=== PATIENT | male | born 1935 | race Caucasian/White ===

== ENCOUNTER 2017-12-07 00:49 | Inpatient (IN) | payer OTHER ==
[~2017-12-07] VITALS: Ht 180.3 cm; Wt 48.4 kg
[2017-12-07] VITALS (11 sets, daily range): BP systolic 81–157; BP diastolic 50–74
[2017-12-07 02:45] LABS: Basophils # (auto) 0 uL; Eosinophils # (auto) 0 uL; Monocytes # (auto) 0.4 uL
[2017-12-07 02:46] LABS: Basophils % (auto) 0.4 % (0.0-2.0); Eosinophils % (auto) 0.1 % (0.0-7.0); Lymphocytes # (auto) 0.7 uL; Mean Corpuscular Hgb Conc. 32.5 g/dL (32.0-36.0); Mean Corpuscular Volume 104.6 fL (80.0-100.0); Monocytes % (auto) 3.3 % (0.0-12.0); Neutrophils % (auto) 90.2 % (37.0-80.0); Platelet Count (auto) 206 10^3/uL (140-450); Red Blood Cells 3.54 10^6/uL (4.5-5.90); Red Cell Distribution Width 13.9 % (11.8-14.3); White Blood Cell 11.1 10^3/uL (4.4-10.8)
[2017-12-07 02:55] LABS: Albumin 3.1 g/dL (3.4-5.0); Calcium 9.5 mg/dL (8.5-10.1); Potassium 4.2 mmol/L (3.5-5.1)
[2017-12-07 02:58] LABS: BUN/Creatinine Ratio 11.9; Bilirubin, Total 0.6 mg/dL (0.2-1.0)
[2017-12-07] MEDS ORDERED: ACETAMINOPHEN 325 MG TAB PO PRN (06:15)
[2017-12-07] MEDS ORDERED: MORPHINE SULFATE 10 MG/ML INJ 1ML SDV IV PRN (06:15)
[2017-12-07] MEDS ORDERED: TEMAZEPAM 15 MG CAP PO PRN (06:15)
[2017-12-07] MEDS ORDERED: FUROSEMIDE 20 MG/2 ML VIAL IV ONE ×2 (06:15→11:45)
[2017-12-07] MEDS ORDERED: HYDROcodone-ACET 5/325MG TAB PO PRN (06:15)
[2017-12-07] MEDS ORDERED: ONDANSETRON HCL 4 MG/2 ML VIAL IV PRN (06:15)
[2017-12-07] MEDS ORDERED: NITROGLYCERIN 0.4 MG SL TAB SL PRN (06:15)
[2017-12-07] MEDS: cefTRIAXone 1GM/10ml IVPUSH 10 ML IV SCH ×2 (06:15→09:28)
[2017-12-07] MEDS: AZITHROMYCIN 500MG/ 250ML 250 ML IV SCH ×2 (06:15→09:31)
[2017-12-07] MEDS ORDERED: DOCUSATE SOD 100 MG CAP PO PRN (06:15)
[2017-12-07] MEDS: FAMOTIDINE 20 MG TAB PO SCH ×2 (09:29→22:00)
[2017-12-07] MEDS ORDERED: CARVEDILOL 3.125 MG TAB PO SCH (10:00)
[2017-12-07] MEDS ORDERED: ASPirin 81 mg TAB PO SCH (10:00)
[2017-12-07] MEDS ORDERED: FUROSEMIDE 20 MG TAB PO SCH (10:00)
[2017-12-07] MEDS ORDERED: ENOXAPARIN SOD 40 MG/0.4 ML SYRINGE SC SCH (10:00)
[2017-12-07] MEDS ORDERED: ATORVASTATIN 20 MG TAB PO ONE (11:30)
[2017-12-07] MEDS ORDERED: MIDAZOLAM HCL 5 MG/ML-1ML VIAL ONE (13:47)
[2017-12-07] MEDS ORDERED: PROPOFOL 100 ML IV ONE (13:48)
[2017-12-07] MEDS ORDERED: IOHEXOL 350 MG/ML 100ML IJ ONE ×2 (14:07→15:36)
[2017-12-07] MEDS ORDERED: LIDOCAINE 2%HCL (LOCAL ANESTH.) INJ 20ML MDV ONE (14:07)
[2017-12-07] MEDS ORDERED: EPINEPHrine HCL 1 MG/10 ML SYRG ONE (14:28)
[2017-12-07] MEDS ORDERED: ATROPINE SULF 0.5 MG/5ML SYR ONE (14:29)
[2017-12-07] MEDS ORDERED: NOREPINEPHRINE 8 MG/250ML KIT 250 ML IV ONE ×2 (14:43→20:39)
[2017-12-07] MEDS ORDERED: SODIUM BICARBONATE 8.4 % INJ 50ML VIAL IV ONE (14:56)
[2017-12-07] MEDS ORDERED: SODIUM BICARBONATE 8.4% INJ 50ML SYRINGE IV ONE (15:16)
[2017-12-07] MEDS ORDERED: CALCIUM CHLOR(10%) 100MG/ML 10ML SYRINGE IV ONE (15:16)
[2017-12-07] MEDS ORDERED: EPINEPHrine HCL 1 MG/10 ML SYRG IV ONE (15:16)
[2017-12-07] MEDS ORDERED: MAGNESIUM SULF 50% 40 MEQ/10 ML VL IV ONE (15:27)
[2017-12-07] MEDS ORDERED: ATROPINE SULF 0.5 MG/5ML SYR IV ONE (15:27)
[2017-12-07] MEDS ORDERED: CLOPIDOGREL 300 MG TAB ONE (16:06)
[2017-12-07] MEDS ORDERED: ANGIOMAX 250 MG in SODIUM CHL 0.9% 50 ML IV ONE (16:30)
[2017-12-07] MEDS: PROPOFOL 100 ML IV SCH (17:00)
[2017-12-07] MEDS: FUROSEMIDE 40 MG/4 ML VIAL IV SCH (18:00)
[2017-12-07 20:27] LABS: INR 1.65 (0.9-1.15); Prothrombin Time 18.1 sec (9.37-12.3)
[2017-12-07] MEDS: ENOXAPARIN SOD 60 MG/0.6 ML SYRINGE SC SCH (22:00)
[2017-12-08] VITALS (36 sets, daily range): BP systolic 81–147; BP diastolic 40–105
[2017-12-08 04:56] LABS: Eosinophils # (auto) 0 uL; Hemoglobin 10.4 g/dL (13.5-17.5); Monocytes # (auto) 0.7 uL; Neutrophils # (auto) 7.2 uL; Nucleated Red Blood Cells % 0.1 %; Red Cell Distribution Width 13.8 % (11.8-14.3)
[2017-12-08 04:58] LABS: Basophils # (auto) 0 uL; Basophils % (auto) 0.4 % (0.0-2.0); Hematocrit 30.7 % (41.0-53.0); Lymphocytes # (auto) 0.8 uL; Lymphocytes % (auto) 8.7 % (10.0-50.0); Mean Corpuscular Hemoglobin 35.1 pg (28.0-32.0); Mean Corpuscular Hgb Conc. 33.9 g/dL (32.0-36.0); Mean Corpuscular Volume 103.6 fL (80.0-100.0); Monocytes % (auto) 7.7 % (0.0-12.0); Neutrophils % (auto) 83.2 % (37.0-80.0); Platelet Count (auto) 167 10^3/uL (140-450); Red Blood Cells 2.97 10^6/uL (4.5-5.90); White Blood Cell 8.6 10^3/uL (4.4-10.8)
[2017-12-08 05:07] LABS: INR 1.09 (0.9-1.15); Partial Thromboplastin Time 49.5 sec (22.64-33.71); Prothrombin Time 11.9 sec (9.37-12.3)
[2017-12-08 05:15] LABS: Albumin 2.3 g/dL (3.4-5.0); BUN/Creatinine Ratio 12.8; Bilirubin, Total 0.3 mg/dL (0.2-1.0); Calcium 8.4 mg/dL (8.5-10.1); Magnesium 2.4 mg/dL (1.6-2.6); Phosphorus 4.3 mg/dL (2.5-4.90); Potassium 3.5 mmol/L (3.5-5.1); Total Protein 6.5 g/dL (6.4-8.2)
[2017-12-08] MEDS: FUROSEMIDE 40 MG/4 ML VIAL IV SCH ×2 (06:09→17:47)
[2017-12-08] MEDS: NOREPINEPHRINE 8 MG/250ML KIT 250 ML IV SCH (07:00)
[2017-12-08] MEDS: cefTRIAXone 1GM/10ml IVPUSH 10 ML IV SCH (09:32)
[2017-12-08] MEDS: ENOXAPARIN SOD 60 MG/0.6 ML SYRINGE SC SCH ×2 (10:25→22:00)
[2017-12-08] MEDS: ASPirin 81 mg TAB PO SCH (10:26)
[2017-12-08] MEDS: PROPOFOL 100 ML IV SCH ×2 (10:26→18:51)
[2017-12-08] MEDS: CLOPIDOGREL BISULFATE 75 MG TAB PO SCH (10:26)
[2017-12-08] MEDS: FAMOTIDINE 20 MG TAB PO SCH ×2 (10:26→22:00)
[2017-12-08] MEDS ORDERED: CLINDAMYCIN 300MG IV 50 ML IV SCH (12:00)
[2017-12-08] MEDS: DOXYCYCLINE HYC 100MG/250ML 250 ML IV SCH (14:07)
[2017-12-08] MEDS: POTASSIUM CHL 20MEQ/100ML 100 ML IV SCH ×2 (15:50→17:38)
[2017-12-08] MEDS: CLINDAMYCIN 300MG IV 50 ML IV SCH (17:17)
[2017-12-09] VITALS (35 sets, daily range): BP systolic 99–153; BP diastolic 45–100
[2017-12-09] MEDS: CLINDAMYCIN 300MG IV 50 ML IV SCH ×3 (01:00→18:28)
[2017-12-09] MEDS: DOXYCYCLINE HYC 100MG/250ML 250 ML IV SCH ×2 (01:00→13:58)
[2017-12-09 05:05] LABS: Basophils # (auto) 0 uL; Eosinophils # (auto) 0 uL; Eosinophils % (auto) 0.1 % (0.0-7.0); Lymphocytes # (auto) 1.1 uL; Nucleated Red Blood Cells % 0.1 %; Red Cell Distribution Width 13.8 % (11.8-14.3)
[2017-12-09 05:07] LABS: Basophils % (auto) 0.3 % (0.0-2.0); Hematocrit 29.4 % (41.0-53.0); Lymphocytes % (auto) 12.9 % (10.0-50.0); Mean Corpuscular Hemoglobin 34.9 pg (28.0-32.0); Mean Corpuscular Volume 102.7 fL (80.0-100.0); Monocytes # (auto) 0.6 uL; Monocytes % (auto) 7.5 % (0.0-12.0); Neutrophils # (auto) 6.5 uL; Neutrophils % (auto) 79.2 % (37.0-80.0); Platelet Count (auto) 154 10^3/uL (140-450); Red Blood Cells 2.87 10^6/uL (4.5-5.90); White Blood Cell 8.2 10^3/uL (4.4-10.8)
[2017-12-09 05:15] LABS: BUN/Creatinine Ratio 15.1; Calcium 7.9 mg/dL (8.5-10.1); Magnesium 2.1 mg/dL (1.6-2.6); Potassium 3.1 mmol/L (3.5-5.1)
[2017-12-09 05:15] LABS: INR 0.94 (0.9-1.15); Partial Thromboplastin Time 37.7 sec (22.64-33.71); Prothrombin Time 10.2 sec (9.37-12.3)
[2017-12-09] MEDS: FUROSEMIDE 40 MG/4 ML VIAL IV SCH ×2 (06:00→18:21)
[2017-12-09] MEDS: NOREPINEPHRINE 8 MG/250ML KIT 250 ML IV SCH (06:39)
[2017-12-09] MEDS: PROPOFOL 100 ML IV SCH ×2 (08:59→12:43)
[2017-12-09] MEDS: CLOPIDOGREL BISULFATE 75 MG TAB PO SCH (10:08)
[2017-12-09] MEDS: POTASSIUM CHL 20MEQ/100ML 100 ML IV SCH ×3 (10:08→13:51)
[2017-12-09] MEDS: ASPirin 81 mg TAB PO SCH (10:08)
[2017-12-09] MEDS: FAMOTIDINE 20 MG TAB PO SCH ×2 (10:08→22:18)
[2017-12-10] VITALS (85 sets, daily range): BP systolic 75–149; BP diastolic 36–88
[2017-12-10] MEDS: CARVEDILOL 3.125 MG TAB PO SCH (00:30)
[2017-12-10] MEDS: CLINDAMYCIN 300MG IV 50 ML IV SCH ×3 (00:52→17:11)
[2017-12-10] MEDS: PROPOFOL 100 ML IV SCH ×4 (01:12→20:04)
[2017-12-10] MEDS: DOXYCYCLINE HYC 100MG/250ML 250 ML IV SCH ×2 (01:37→15:16)
[2017-12-10 04:24] LABS: Basophils # (auto) 0 uL; Basophils % (auto) 0.3 % (0.0-2.0); Eosinophils # (auto) 0 uL; Eosinophils % (auto) 0.3 % (0.0-7.0); Hemoglobin 10.3 g/dL (13.5-17.5); White Blood Cell 6.5 10^3/uL (4.4-10.8)
[2017-12-10 04:25] LABS: Hematocrit 30.7 % (41.0-53.0); Lymphocytes # (auto) 0.7 uL; Lymphocytes % (auto) 10.9 % (10.0-50.0); Mean Corpuscular Hemoglobin 34.5 pg (28.0-32.0); Mean Corpuscular Hgb Conc. 33.5 g/dL (32.0-36.0); Monocytes # (auto) 0.4 uL; Monocytes % (auto) 6.8 % (0.0-12.0); Neutrophils # (auto) 5.3 uL; Neutrophils % (auto) 81.7 % (37.0-80.0); Platelet Count (auto) 150 10^3/uL (140-450); Red Blood Cells 2.98 10^6/uL (4.5-5.90); Red Cell Distribution Width 13.6 % (11.8-14.3)
[2017-12-10 04:47] LABS: BUN/Creatinine Ratio 13.4; Calcium 7.8 mg/dL (8.5-10.1); Magnesium 2.1 mg/dL (1.6-2.6); Phosphorus 3.3 mg/dL (2.5-4.90); Potassium 3.2 mmol/L (3.5-5.1)
[2017-12-10] MEDS: FUROSEMIDE 40 MG/4 ML VIAL IV SCH ×2 (05:00→17:48)
[2017-12-10] MEDS: NOREPINEPHRINE 8 MG/250ML KIT 250 ML IV SCH (08:50)
[2017-12-10] MEDS ORDERED: POTASSIUM CHL 20MEQ/100ML 300 ML IV ONE (10:26)
[2017-12-10] MEDS: FAMOTIDINE 20 MG TAB PO SCH ×2 (10:45→21:26)
[2017-12-10] MEDS: POTASSIUM CHL 20MEQ/100ML 100 ML IV SCH ×3 (10:46→15:15)
[2017-12-10] MEDS: CLOPIDOGREL BISULFATE 75 MG TAB PO SCH (16:18)
[2017-12-10] MEDS: ASPirin 81 mg TAB PO SCH (16:18)
[2017-12-10] MEDS: ATORVASTATIN 20 MG TAB PO SCH (21:26)
[2017-12-11] VITALS (103 sets, daily range): BP systolic 66–132; BP diastolic 46–88
[2017-12-11] MEDS: CLINDAMYCIN 300MG IV 50 ML IV SCH ×3 (01:16→17:00)
[2017-12-11] MEDS: DOXYCYCLINE HYC 100MG/250ML 250 ML IV SCH ×2 (01:16→16:22)
[2017-12-11] MEDS ORDERED: NITROGLYCERIN 0.4 MG SL TAB SL ONE (03:40)
[2017-12-11] MEDS: PROPOFOL 100 ML IV SCH ×4 (04:13→20:12)
[2017-12-11 04:16] LABS: Basophils # (auto) 0 uL; Eosinophils # (auto) 0 uL; Lymphocytes # (auto) 0.8 uL; Mean Corpuscular Hgb Conc. 33.5 g/dL (32.0-36.0); Monocytes # (auto) 0.4 uL; Neutrophils # (auto) 4.2 uL; White Blood Cell 5.5 10^3/uL (4.4-10.8)
[2017-12-11 04:18] LABS: Basophils % (auto) 0.8 % (0.0-2.0); Eosinophils % (auto) 0.8 % (0.0-7.0); Hemoglobin 9.4 g/dL (13.5-17.5); Lymphocytes % (auto) 14.8 % (10.0-50.0); Mean Corpuscular Hemoglobin 34.7 pg (28.0-32.0); Mean Corpuscular Volume 103.6 fL (80.0-100.0); Monocytes % (auto) 7.5 % (0.0-12.0); Neutrophils % (auto) 76.1 % (37.0-80.0); Platelet Count (auto) 152 10^3/uL (140-450); Red Cell Distribution Width 13.5 % (11.8-14.3)
[2017-12-11 04:45] LABS: BUN/Creatinine Ratio 12.2; Calcium 7.9 mg/dL (8.5-10.1); Magnesium 1.8 mg/dL (1.6-2.6); Phosphorus 2.8 mg/dL (2.5-4.90); Potassium 3.2 mmol/L (3.5-5.1)
[2017-12-11] MEDS: NOREPINEPHRINE 8 MG/250ML KIT 250 ML IV SCH (06:22)
[2017-12-11] MEDS: FUROSEMIDE 40 MG/4 ML VIAL IV SCH ×2 (06:29→18:35)
[2017-12-11] MEDS: POTASSIUM CHL 20MEQ/100ML 100 ML IV SCH ×2 (07:51→10:04)
[2017-12-11] MEDS: LISINOPRIL 5 MG TAB PO SCH (09:23)
[2017-12-11] MEDS: FAMOTIDINE 20 MG TAB PO SCH ×2 (09:23→22:00)
[2017-12-11] MEDS: CARVEDILOL 3.125 MG TAB PO SCH ×2 (09:24→21:44)
[2017-12-11] MEDS: ASPirin 81 mg TAB PO SCH (10:00)
[2017-12-11] MEDS: CLOPIDOGREL BISULFATE 75 MG TAB PO SCH (10:00)
[2017-12-11] MEDS: ATORVASTATIN 20 MG TAB PO SCH (21:43)
[2017-12-12] VITALS (89 sets, daily range): BP systolic 76–157; BP diastolic 51–85
[2017-12-12] MEDS: DOXYCYCLINE HYC 100MG/250ML 250 ML IV SCH ×2 (01:26→13:38)
[2017-12-12] MEDS: CLINDAMYCIN 300MG IV 50 ML IV SCH ×3 (01:26→17:29)
[2017-12-12 03:47] LABS: Basophils # (auto) 0 uL; Eosinophils # (auto) 0.1 uL; Hemoglobin 10.6 g/dL (13.5-17.5); Lymphocytes # (auto) 0.9 uL; Monocytes # (auto) 0.4 uL
[2017-12-12 03:49] LABS: Basophils % (auto) 0.2 % (0.0-2.0); Eosinophils % (auto) 1.9 % (0.0-7.0); Lymphocytes % (auto) 14.8 % (10.0-50.0); Mean Corpuscular Hemoglobin 34.3 pg (28.0-32.0); Mean Corpuscular Hgb Conc. 33.3 g/dL (32.0-36.0); Mean Corpuscular Volume 103.1 fL (80.0-100.0); Monocytes % (auto) 6.4 % (0.0-12.0); Neutrophils # (auto) 4.7 uL; Neutrophils % (auto) 76.7 % (37.0-80.0); Nucleated Red Blood Cells % 0.2 %; Platelet Count (auto) 159 10^3/uL (140-450); Red Cell Distribution Width 13.6 % (11.8-14.3); White Blood Cell 6.2 10^3/uL (4.4-10.8)
[2017-12-12] MEDS: PROPOFOL 100 ML IV SCH ×3 (04:00→11:30)
[2017-12-12 04:01] LABS: Calcium 8.8 mg/dL (8.5-10.1); Potassium 3.6 mmol/L (3.5-5.1)
[2017-12-12 04:06] LABS: BUN/Creatinine Ratio 13.3
[2017-12-12] MEDS: FUROSEMIDE 40 MG/4 ML VIAL IV SCH ×2 (06:03→18:00)
[2017-12-12] MEDS: NOREPINEPHRINE 8 MG/250ML KIT 250 ML IV SCH (09:00)
[2017-12-12] MEDS: CARVEDILOL 3.125 MG TAB PO SCH ×2 (10:00→21:53)
[2017-12-12] MEDS: LISINOPRIL 5 MG TAB PO SCH (10:00)
[2017-12-12] MEDS: CLOPIDOGREL BISULFATE 75 MG TAB PO SCH (10:35)
[2017-12-12] MEDS: ASPirin 81 mg TAB PO SCH (10:35)
[2017-12-12] MEDS: FAMOTIDINE 20 MG TAB PO SCH ×2 (10:35→21:53)
[2017-12-12] MEDS: ATORVASTATIN 20 MG TAB PO SCH (21:53)
[2017-12-13] VITALS (30 sets, daily range): BP systolic 80–120; BP diastolic 44–99
[2017-12-13] MEDS: PROPOFOL 100 ML IV SCH ×2 (01:01→02:55)
[2017-12-13] MEDS: DOXYCYCLINE HYC 100MG/250ML 250 ML IV SCH ×2 (01:09→15:03)
[2017-12-13] MEDS: CLINDAMYCIN 300MG IV 50 ML IV SCH ×3 (01:09→18:15)
[2017-12-13 04:24] LABS: BUN/Creatinine Ratio 17.6; Calcium 8.8 mg/dL (8.5-10.1); Potassium 3.4 mmol/L (3.5-5.1)
[2017-12-13] MEDS: FUROSEMIDE 40 MG/4 ML VIAL IV SCH ×2 (05:15→18:15)
[2017-12-13] MEDS: NOREPINEPHRINE 8 MG/250ML KIT 250 ML IV SCH (06:22)
[2017-12-13] MEDS: LISINOPRIL 5 MG TAB PO SCH (09:49)
[2017-12-13] MEDS: CARVEDILOL 3.125 MG TAB PO SCH ×2 (09:49→22:00)
[2017-12-13] MEDS: FAMOTIDINE 20 MG TAB PO SCH ×2 (10:00→22:00)
[2017-12-13] MEDS: CLOPIDOGREL BISULFATE 75 MG TAB PO SCH (10:30)
[2017-12-13] MEDS: ASPirin 81 mg TAB PO SCH (10:30)
[2017-12-13] MEDS ORDERED: POTASSIUM CHL 20MEQ/100ML 100 ML IV ONE (15:30)
[2017-12-13] MEDS: POTASSIUM CHL 20MEQ/100ML 100 ML IV SCH (18:00)
[2017-12-13] MEDS: ATORVASTATIN 20 MG TAB PO SCH (22:00)
[2017-12-13] MEDS: ALBUTEROL SULF 2.5 MG/0.5ML(0.5%) NEB SOLN NEB PRN (22:35)
[2017-12-13] MEDS: ACETYLCYSTEINE 10 %(100MG/ML) SOL 4ML NEB SCH (22:35)
[2017-12-14] VITALS (16 sets, daily range): BP systolic 91–125; BP diastolic 49–86
[2017-12-14] MEDS: DOXYCYCLINE HYC 100MG/250ML 250 ML IV SCH ×2 (01:00→12:51)
[2017-12-14] MEDS: CLINDAMYCIN 300MG IV 50 ML IV SCH ×2 (01:00→11:59)
[2017-12-14 04:08] LABS: Eosinophils # (auto) 0.1 uL; Hemoglobin 11.5 g/dL (13.5-17.5); Monocytes # (auto) 0.8 uL; Neutrophils # (auto) 7.1 uL
[2017-12-14 04:13] LABS: Basophils # (auto) 0 uL; Basophils % (auto) 0.5 % (0.0-2.0); Eosinophils % (auto) 1.5 % (0.0-7.0); Hematocrit 34.1 % (41.0-53.0); Lymphocytes % (auto) 10.8 % (10.0-50.0); Mean Corpuscular Hemoglobin 34.2 pg (28.0-32.0); Mean Corpuscular Hgb Conc. 33.6 g/dL (32.0-36.0); Mean Corpuscular Volume 101.6 fL (80.0-100.0); Monocytes % (auto) 8.3 % (0.0-12.0); Neutrophils % (auto) 78.9 % (37.0-80.0); Nucleated Red Blood Cells % 0.1 %; Platelet Count (auto) 274 10^3/uL (140-450); Red Blood Cells 3.35 10^6/uL (4.5-5.90); Red Cell Distribution Width 13.1 % (11.8-14.3)
[2017-12-14 04:34] LABS: BUN/Creatinine Ratio 16.3; Calcium 8.5 mg/dL (8.5-10.1); Potassium 3.6 mmol/L (3.5-5.1)
[2017-12-14] MEDS: POTASSIUM CHL 20MEQ/100ML 100 ML IV SCH (06:18)
[2017-12-14] MEDS: FUROSEMIDE 40 MG/4 ML VIAL IV SCH (06:19)
[2017-12-14] MEDS: NOREPINEPHRINE 8 MG/250ML KIT 250 ML IV SCH (06:19)
[2017-12-14] MEDS: ALBUTEROL SULF 2.5 MG/0.5ML(0.5%) NEB SOLN NEB PRN ×3 (06:25→22:12)
[2017-12-14] MEDS: ASPirin 81 mg TAB PO SCH (10:00)
[2017-12-14] MEDS: LISINOPRIL 5 MG TAB PO SCH (10:00)
[2017-12-14] MEDS: FAMOTIDINE 20 MG TAB PO SCH ×2 (10:00→21:27)
[2017-12-14] MEDS: CLOPIDOGREL BISULFATE 75 MG TAB PO SCH (10:00)
[2017-12-14] MEDS: CARVEDILOL 3.125 MG TAB PO SCH ×2 (10:00→22:28)
[2017-12-14] MEDS: ACETYLCYSTEINE 10 %(100MG/ML) SOL 4ML NEB SCH ×2 (10:34→22:12)
[2017-12-14] MEDS ORDERED: HYDROcodone-ACET 5/325MG TAB PO PRN (14:30)
[2017-12-14] MEDS ORDERED: TEMAZEPAM 15 MG CAP PO PRN (14:30)
[2017-12-14] MEDS ORDERED: MORPHINE SULF INJ 2 MG/ML SYRINGE 1ML IV PRN (14:45)
[2017-12-14] MEDS: PROPOFOL 100 ML IV SCH (16:29)
[2017-12-14] MEDS: ATORVASTATIN 20 MG TAB PO SCH (21:27)
[2017-12-15 04:00] VITALS: BP 124/50
[2017-12-15] MEDS: NOREPINEPHRINE 8 MG/250ML KIT 250 ML IV SCH (06:22)
[2017-12-15 08:00] VITALS: BP 106/66
[2017-12-15] MEDS: ACETYLCYSTEINE 10 %(100MG/ML) SOL 4ML NEB SCH (09:19)
[2017-12-15] MEDS: CARVEDILOL 3.125 MG TAB PO SCH ×2 (10:00→22:00)
[2017-12-15] MEDS: LISINOPRIL 5 MG TAB PO SCH (10:00)
[2017-12-15] MEDS ORDERED: FUROSEMIDE 40 MG/4 ML VIAL IV SCH (10:00)
[2017-12-15] MEDS ORDERED: POTASSIUM CHL 20MEQ/100ML 100 ML IV SCH (10:00)
[2017-12-15] MEDS ORDERED: FUROSEMIDE 20 MG/2 ML VIAL IV SCH (10:15)
[2017-12-15] MEDS: ASPirin 81 mg TAB PO SCH (10:17)
[2017-12-15] MEDS: FAMOTIDINE 20 MG TAB PO SCH ×2 (10:17→22:00)
[2017-12-15] MEDS: CLOPIDOGREL BISULFATE 75 MG TAB PO SCH (10:18)
[2017-12-15 10:19] LABS: BUN/Creatinine Ratio 21.1; Calcium 9.1 mg/dL (8.5-10.1); Potassium 3.6 mmol/L (3.5-5.1)
[2017-12-15 12:14] VITALS: BP 115/67
[2017-12-15 16:11] VITALS: BP 150/81
[2017-12-15 20:25] VITALS: BP 105/66
[2017-12-15] MEDS: ATORVASTATIN 20 MG TAB PO SCH (22:00)
[2017-12-16] VITALS (7 sets, daily range): BP systolic 79–127; BP diastolic 55–81
[2017-12-16] MEDS: CLOPIDOGREL BISULFATE 75 MG TAB PO SCH (10:42)
[2017-12-16] MEDS: FUROSEMIDE 20 MG TAB PO SCH (10:42)
[2017-12-16] MEDS: POTASSIUM CHL 20 Meq TABLET PO SCH (10:42)
[2017-12-16] MEDS: CARVEDILOL 3.125 MG TAB PO SCH ×2 (10:43→21:46)
[2017-12-16] MEDS: ASPirin 81 mg TAB PO SCH (10:43)
[2017-12-16] MEDS: FAMOTIDINE 20 MG TAB PO SCH ×2 (10:43→22:03)
[2017-12-16] MEDS: LISINOPRIL 5 MG TAB PO SCH (10:44)
[2017-12-16] MEDS: ATORVASTATIN 20 MG TAB PO SCH (22:03)
[2017-12-17] VITALS (86 sets, daily range): BP systolic 81–133; BP diastolic 39–75
[2017-12-17] MEDS ORDERED: NOREPINEPHRINE 8 MG/250ML KIT 250 ML IV SCH (00:15)
[2017-12-17 05:36] LABS: Basophils # (auto) 0 uL; Eosinophils # (auto) 0.2 uL; Hemoglobin 11.2 g/dL (13.5-17.5); Lymphocytes # (auto) 1.4 uL; Monocytes % (auto) 7.5 % (0.0-12.0)
[2017-12-17 05:42] LABS: Basophils % (auto) 0.4 % (0.0-2.0); Eosinophils % (auto) 1.9 % (0.0-7.0); Hematocrit 33.4 % (41.0-53.0); Lymphocytes % (auto) 16.4 % (10.0-50.0); Mean Corpuscular Hemoglobin 34.2 pg (28.0-32.0); Mean Corpuscular Hgb Conc. 33.6 g/dL (32.0-36.0); Mean Corpuscular Volume 101.8 fL (80.0-100.0); Monocytes # (auto) 0.7 uL; Neutrophils # (auto) 6.4 uL; Neutrophils % (auto) 73.8 % (37.0-80.0); Platelet Count (auto) 358 10^3/uL (140-450); Red Blood Cells 3.28 10^6/uL (4.5-5.90); Red Cell Distribution Width 13.4 % (11.8-14.3); White Blood Cell 8.7 10^3/uL (4.4-10.8)
[2017-12-17 06:14] LABS: Albumin 2.5 g/dL (3.4-5.0); BUN/Creatinine Ratio 18.4; Bilirubin, Total 0.6 mg/dL (0.2-1.0); Calcium 8.7 mg/dL (8.5-10.1); Potassium 3.9 mmol/L (3.5-5.1); Total Protein 7.4 g/dL (6.4-8.2)
[2017-12-17] MEDS: FUROSEMIDE 20 MG TAB PO SCH (09:50)
[2017-12-17] MEDS: CARVEDILOL 3.125 MG TAB PO SCH ×2 (09:50→21:57)
[2017-12-17] MEDS: LISINOPRIL 5 MG TAB PO SCH (09:51)
[2017-12-17] MEDS: FAMOTIDINE 20 MG TAB PO SCH ×2 (10:01→21:58)
[2017-12-17] MEDS: CLOPIDOGREL BISULFATE 75 MG TAB PO SCH (10:01)
[2017-12-17] MEDS: ASPirin 81 mg TAB PO SCH (10:01)
[2017-12-17] MEDS: POTASSIUM CHL 20 Meq TABLET PO SCH (10:01)
[2017-12-17] MEDS ORDERED: HYDROCORTISONE SOD SUCC 100 MG/2ML INJ VIAL IV ONE (14:45)
[2017-12-17] MEDS: ATORVASTATIN 20 MG TAB PO SCH (21:58)
[2017-12-18] VITALS (17 sets, daily range): BP systolic 95–130; BP diastolic 47–68
[2017-12-18] MEDS: CARVEDILOL 3.125 MG TAB PO SCH (10:00)
[2017-12-18] MEDS: ASPirin 81 mg TAB PO SCH (10:00)
[2017-12-18] MEDS: CLOPIDOGREL BISULFATE 75 MG TAB PO SCH (10:00)
[2017-12-18] MEDS: FAMOTIDINE 20 MG TAB PO SCH (10:00)
[2017-12-18] MEDS ORDERED: ASPI81CH43 PO (14:56)
[2017-12-18] MEDS ORDERED: CLOP75TA28 PO (14:56)
[2017-12-18] MEDS ORDERED: ATOR20TA50 PO (14:56)
[2017-12-18] MEDS ORDERED: FURO20TA PO (14:56)
[2017-12-18] MEDS ORDERED: CAR3125T PO (14:56)
== END 2017-12-18 20:55 | disposition home health service (06) | DRG 270 ==
LOC: ER 00:49 → EDBD 00:49 → TELE 00:50 → TELE-CENTR 08:08 → ICU WEST 16:09 → DOU IN ICU 12-14 22:57
PROVIDERS: ADMIT Nurse Practitioner; ATTEND Internal Medicine
PROC: B2111ZZ Fluoroscopy of Multiple Coronary Arteries using Low Osmolar Contrast (ICD-10-PCS; principal; 2017-12-07)
PROC: 5A02110 Assistance with Cardiac Output using Balloon Pump, Intermittent (ICD-10-PCS; 2017-12-07)
PROC: 027035Z Dilation of Coronary Artery, One Artery with Two Drug-eluting Intraluminal Devices, Percutaneous Approach (ICD-10-PCS; 2017-12-07)
PROC: 4A023N7 Measurement of Cardiac Sampling and Pressure, Left Heart, Percutaneous Approach (ICD-10-PCS; 2017-12-07)
PROC: B2151ZZ Fluoroscopy of Left Heart using Low Osmolar Contrast (ICD-10-PCS; 2017-12-07)
PROC: 5A12012 Performance of Cardiac Output, Single, Manual (ICD-10-PCS; 2017-12-07)
PROC: 5A1955Z Respiratory Ventilation, Greater than 96 Consecutive Hours (ICD-10-PCS; 2017-12-07)
PROC: 0BH17EZ Insertion of Endotracheal Airway into Trachea, Via Natural or Artificial Opening (ICD-10-PCS; 2017-12-07)
PROC: 0W993ZZ Drainage of Right Pleural Cavity, Percutaneous Approach (ICD-10-PCS; 2017-12-11)
DX: I21.09 ST elevation (STEMI) myocardial infarction involving other coronary artery of anterior wall (principal); J96.01 Acute respiratory failure with hypoxia; I46.9 Cardiac arrest, cause unspecified; G92 Toxic encephalopathy; J18.9 Pneumonia, unspecified organism; J90 Pleural effusion, not elsewhere classified; G93.1 Anoxic brain damage, not elsewhere classified; E46 Unspecified protein-calorie malnutrition; I11.0 Hypertensive heart disease with heart failure; I50.43 Acute on chronic combined systolic (congestive) and diastolic (congestive) heart failure; Z68.1 Body mass index [BMI] 19.9 or less, adult; I42.0 Dilated cardiomyopathy; D64.9 Anemia, unspecified; E87.6 Hypokalemia; I25.10 Atherosclerotic heart disease of native coronary artery without angina pectoris; I25.5 Ischemic cardiomyopathy; I25.82 Chronic total occlusion of coronary artery; I49.5 Sick sinus syndrome; I73.9 Peripheral vascular disease, unspecified; Z79.02 Long term (current) use of antithrombotics/antiplatelets; Z79.82 Long term (current) use of aspirin; Z87.891 Personal history of nicotine dependence; Z95.5 Presence of coronary angioplasty implant and graft; Z79.899 Other long term (current) drug therapy
CPT/HCPCS: 32555; 33967; 36415; 36600; 70450; 71045; 76604; 76942; 80048; 80053; 82805; 82962; 83735; 83880; 83986; 84100; 84484; 85025; 85379; 85610; 85730; 87081; 87205; 89051; 92610; 92928; 92950; 93005; 93306; 93458; 94002; 94003; 94640; 96374; 97110; 97116; 97163; 97530; 99152; A4565; C1751; C1874; C1887; J0461; J2250; J2704; J3480; J3490

== ENCOUNTER 2018-01-19 09:26 | Inpatient (IN) | payer OTHER ==
[2018-01-19] VITALS (8 sets, daily range): BP systolic 100–124; BP diastolic 57–79
[~2018-01-19] VITALS: Ht 185.4 cm; Wt 2.0 kg
[~2018-01-19 09:26] MED LIST: ASPI81CH43 PO; ATOR20TA50 PO; CAR3125T PO; CLOP75TA28 PO; FURO20TA PO
[2018-01-19 10:27] LABS: Eosinophils # (auto) 0 uL; Lymphocytes # (auto) 0.9 uL; Monocytes # (auto) 0.3 uL; Neutrophils # (auto) 6.8 uL
[2018-01-19 10:29] LABS: Basophils # (auto) 0.1 uL; Basophils % (auto) 0.7 % (0.0-2.0); Eosinophils % (auto) 0.3 % (0.0-7.0); Hematocrit 20.3 % (41.0-53.0); Mean Corpuscular Hemoglobin 32.4 pg (28.0-32.0); Mean Corpuscular Hgb Conc. 32.6 g/dL (32.0-36.0); Mean Corpuscular Volume 99.4 fL (80.0-100.0); Monocytes % (auto) 3.7 % (0.0-12.0); Neutrophils % (auto) 84.3 % (37.0-80.0); Platelet Count (auto) 201 10^3/uL (140-450); Red Blood Cells 2.04 10^6/uL (4.5-5.90); Red Cell Distribution Width 14.4 % (11.8-14.3); White Blood Cell 8.1 10^3/uL (4.4-10.8)
[2018-01-19 10:33] LABS: Hemoglobin 6.6 g/dL (13.5-17.5)
[2018-01-19 10:55] LABS: Albumin 2.1 g/dL (3.4-5.0); BUN/Creatinine Ratio 22.5; Bilirubin, Total 0.2 mg/dL (0.2-1.0); Calcium 8.5 mg/dL (8.5-10.1); Magnesium 2.2 mg/dL (1.6-2.6); Potassium 4.5 mmol/L (3.5-5.1); Total Protein 6.1 g/dL (6.4-8.2)
[2018-01-19] MEDS ORDERED: SODIUM CHLORIDE 0.9% 1,000 ML IV ONE (11:14)
[2018-01-19] MEDS ORDERED: NALBUPHINE HCL 10 MG/1ml INJECTION IV ONE (13:30)
[2018-01-19] MEDS ORDERED: PROMETHAZINE HCL 25 MG/ML 1ML IV ONE (13:30)
[2018-01-19] MEDS ORDERED: LEVOFLOXACIN 500MG 100 ML IV ONE (14:15)
[2018-01-19] MEDS ORDERED: DEXTROSE (50%) 50ML SYRG IV PRN (14:15)
[2018-01-19] MEDS ORDERED: HYDROcodone-ACET 5/325MG TAB PO PRN (14:15)
[2018-01-19] MEDS ORDERED: LORazepam 0.5 MG TAB PO PRN (14:15)
[2018-01-19] MEDS ORDERED: LACTULOSE 20Gm/30ML SOLN PO PRN (14:15)
[2018-01-19] MEDS ORDERED: PANTOPRAZOLE 40 MG/10 ML VIAL IV ONE (14:15)
[2018-01-19] MEDS ORDERED: PROMETHAZINE HCL 25 MG/ML 1ML IV PRN (14:15)
[2018-01-19] MEDS ORDERED: NITROGLYCERIN 0.4 MG SL TAB SL PRN (14:15)
[2018-01-19] MEDS ORDERED: ACETAMINOPHEN 500 MG TAB PO PRN (14:15)
[2018-01-19] MEDS ORDERED: MORPHINE SULFATE 4 MG/ML SYR/VIAL IV PRN ×2 (14:15)
[2018-01-19] MEDS: SODIUM CHLORIDE 0.9% 1,000 ML IV SCH (15:55)
[2018-01-19] MEDS: metroNIDAZOLE 500MG/100ML 100 ML IV SCH ×2 (17:00→22:00)
[2018-01-19] MEDS: ACCU-CHEK COMFORT CURVE STRIP VI SCH (18:15)
[2018-01-19 21:16] LABS: Hematocrit 27.6 % (41.0-53.0); Hemoglobin 9.4 g/dL (13.5-17.5)
[2018-01-19] MEDS: TEMAZEPAM 15 MG CAP PO PRN (21:38)
[2018-01-19] MEDS ORDERED: PANTOPRAZOLE 40 MG TAB PO SCH (22:00)
[2018-01-19 23:32] LABS: Hematocrit 25.9 % (41.0-53.0); Hemoglobin 8.7 g/dL (13.5-17.5)
[2018-01-20] MEDS: SODIUM CHLORIDE 0.9% 1,000 ML IV SCH (00:02)
[2018-01-20] MEDS: ACCU-CHEK COMFORT CURVE STRIP VI SCH ×4 (00:24→18:05)
[2018-01-20] MEDS: metroNIDAZOLE 500MG/100ML 100 ML IV SCH ×4 (04:00→22:25)
[2018-01-20 06:02] LABS: Basophils # (auto) 0 uL; Basophils % (auto) 0.3 % (0.0-2.0); Eosinophils # (auto) 0 uL; Hemoglobin 7.1 g/dL (13.5-17.5); Lymphocytes # (auto) 0.9 uL; Monocytes # (auto) 0.3 uL; Nucleated Red Blood Cells % 0.1 %; White Blood Cell 5.3 10^3/uL (4.4-10.8)
[2018-01-20 06:05] LABS: Eosinophils % (auto) 0.3 % (0.0-7.0); Hematocrit 21.2 % (41.0-53.0); Lymphocytes % (auto) 17.4 % (10.0-50.0); Mean Corpuscular Hemoglobin 31.6 pg (28.0-32.0); Mean Corpuscular Hgb Conc. 33.4 g/dL (32.0-36.0); Mean Corpuscular Volume 94.6 fL (80.0-100.0); Monocytes % (auto) 5.7 % (0.0-12.0); Neutrophils % (auto) 76.3 % (37.0-80.0); Red Blood Cells 2.25 10^6/uL (4.5-5.90); Red Cell Distribution Width 15.8 % (11.8-14.3)
[2018-01-20 06:19] LABS: Platelet Count (auto) 117 10^3/uL (140-450)
[2018-01-20 06:32] LABS: Albumin 1.2 g/dL (3.4-5.0); Alkaline Phosphatase 37 U/L (45-117); Anion Gap 9 (5-15); BUN/Creatinine Ratio 24.4; Bilirubin, Total 0.3 mg/dL (0.2-1.0); Blood Urea Nitrogen 20 mg/dL (7-18); Carbon Dioxide 23 mmol/L (21-32); Chloride 118 mmol/L (98-107); GFR African American 115 mL/min; GFR Non-African American 95 mL/min; Glucose 146 mg/dL (74-106); Sodium 150 mmol/L (136-145); Total Protein 3.4 g/dL (6.4-8.2)
[2018-01-20 07:03] LABS: Potassium 2.9 mmol/L (3.5-5.1)
[2018-01-20 07:04] LABS: Calcium 5.1 mg/dL (8.5-10.1)
[2018-01-20] MEDS ORDERED: CALCIUM GLUC 4.65meq/50ml D5AE 50 ML IV ONE ×2 (07:15)
[2018-01-20] MEDS: POTASSIUM CHL 20MEQ/100ML 100 ML IV SCH ×2 (07:50→09:33)
[2018-01-20 08:05] LABS: Alanine Aminotransferase < 6.0 U/L (16-61); Aspartate Aminotransferase < 3 U/L (15-37)
[2018-01-20 08:06] VITALS: BP 103/53
[2018-01-20 08:24] VITALS: BP 100/59
[2018-01-20 10:13] LABS: Urine Bacteria FEW /hpf (None Seen); Urine Blood 2+ /uL (Negative); Urine Hyaline Cast FEW /lpf (0 - 2); Urine WBC 6 /hpf (0 - 3)
[2018-01-20 10:26] VITALS: BP 105/58
[2018-01-20] MEDS ORDERED: PANTOPRAZOLE 80 MG in SODIUM CHL 0.9% 60 ML IV SCH (10:30)
[2018-01-20] MEDS: SOD CHL 0.45% 1,000 ML IV SCH ×2 (11:19→21:10)
[2018-01-20] MEDS: LEVOFLOXACIN 500MG 100 ML IV SCH (11:23)
[2018-01-20 12:15] LABS: Hematocrit 32.5 % (41.0-53.0); Hemoglobin 10.7 g/dL (13.5-17.5)
[2018-01-20 12:57] LABS: INR 1.05 (0.9-1.15); Prothrombin Time 11.4 sec (9.37-12.3)
[2018-01-20 18:02] LABS: Hematocrit 34.1 % (41.0-53.0); Hemoglobin 11.1 g/dL (13.5-17.5)
[2018-01-20] MEDS ORDERED: PANTOPRAZOLE 40 MG TAB PO SCH (22:00)
[2018-01-20] MEDS: PANTOPRAZOLE 40 MG/10 ML VIAL IV SCH (22:26)
[2018-01-20] MEDS: ATORVASTATIN 20 MG TAB PO SCH (22:26)
[2018-01-21] MEDS: ACCU-CHEK COMFORT CURVE STRIP VI SCH ×4 (00:44→17:48)
[2018-01-21] MEDS: metroNIDAZOLE 500MG/100ML 100 ML IV SCH ×4 (04:57→21:40)
[2018-01-21 07:15] LABS: Basophils # (auto) 0.1 uL; Basophils % (auto) 0.8 % (0.0-2.0); Eosinophils # (auto) 0.1 uL; Hematocrit 32.3 % (41.0-53.0); Hemoglobin 10.7 g/dL (13.5-17.5); Lymphocytes # (auto) 1.1 uL; Mean Corpuscular Hemoglobin 29.2 pg (28.0-32.0); Mean Corpuscular Hgb Conc. 33.2 g/dL (32.0-36.0); Mean Corpuscular Volume 88.1 fL (80.0-100.0); Monocytes # (auto) 0.3 uL; Monocytes % (auto) 4.7 % (0.0-12.0); Neutrophils # (auto) 5.5 uL; Neutrophils % (auto) 77.5 % (37.0-80.0); Nucleated Red Blood Cells % 0.1 %; Platelet Count (auto) 155 10^3/uL (140-450); Red Blood Cells 3.67 10^6/uL (4.5-5.90); White Blood Cell 7.1 10^3/uL (4.4-10.8)
[2018-01-21] MEDS: SOD CHL 0.45% 1,000 ML IV SCH ×3 (07:33→21:03)
[2018-01-21 07:41] LABS: Alanine Aminotransferase < 6 U/L (16-61); Albumin 1.9 g/dL (3.4-5.0); Alkaline Phosphatase 63 U/L (45-117); Anion Gap 8 (5-15); Aspartate Aminotransferase 14 U/L (15-37); BUN/Creatinine Ratio 17.1; Bilirubin, Total 0.6 mg/dL (0.2-1.0); Blood Urea Nitrogen 19 mg/dL (7-18); Calcium 8.1 mg/dL (8.5-10.1); Carbon Dioxide 26 mmol/L (21-32); Chloride 108 mmol/L (98-107); GFR African American 81 mL/min; GFR Non-African American 67 mL/min; Glucose 85 mg/dL (74-106); Potassium 4.3 mmol/L (3.5-5.1); Sodium 142 mmol/L (136-145); Total Protein 5.5 g/dL (6.4-8.2)
[2018-01-21 07:42] LABS: Magnesium 1.8 mg/dL (1.6-2.6); Phosphorus 1.9 mg/dL (2.5-4.90)
[2018-01-21] MEDS: LEVOFLOXACIN 500MG 100 ML IV SCH (09:00)
[2018-01-21] MEDS: PANTOPRAZOLE 40 MG/10 ML VIAL IV SCH ×2 (10:07→21:40)
[2018-01-21 20:00] VITALS: BP 122/77
[2018-01-21] MEDS: ATORVASTATIN 20 MG TAB PO SCH (21:40)
[2018-01-21] MEDS: TEMAZEPAM 15 MG CAP PO PRN (21:40)
[2018-01-22] MEDS: ACCU-CHEK COMFORT CURVE STRIP VI SCH ×4 (00:15→17:47)
[2018-01-22] MEDS: metroNIDAZOLE 500MG/100ML 100 ML IV SCH ×2 (04:28→09:54)
[2018-01-22 04:58] VITALS: BP 107/71
[2018-01-22 05:56] LABS: Basophils # (auto) 0 uL; Basophils % (auto) 0.3 % (0.0-2.0); Eosinophils # (auto) 0 uL; Eosinophils % (auto) 0.2 % (0.0-7.0); Hematocrit 35.6 % (41.0-53.0); Hemoglobin 11.8 g/dL (13.5-17.5); Lymphocytes # (auto) 0.7 uL; Lymphocytes % (auto) 7.9 % (10.0-50.0); Mean Corpuscular Hemoglobin 29.4 pg (28.0-32.0); Mean Corpuscular Hgb Conc. 33.1 g/dL (32.0-36.0); Mean Corpuscular Volume 89.1 fL (80.0-100.0); Monocytes # (auto) 0.5 uL; Monocytes % (auto) 5.8 % (0.0-12.0); Neutrophils # (auto) 7.8 uL; Neutrophils % (auto) 85.8 % (37.0-80.0); Nucleated Red Blood Cells % 0.1 %; Platelet Count (auto) 158 10^3/uL (140-450); White Blood Cell 9.1 10^3/uL (4.4-10.8)
[2018-01-22 06:09] LABS: Red Cell Distribution Width 22.6 % (11.8-14.3)
[2018-01-22 06:15] LABS: BUN/Creatinine Ratio 16.1; Calcium 8.2 mg/dL (8.5-10.1); Magnesium 1.6 mg/dL (1.6-2.6); Potassium 4.2 mmol/L (3.5-5.1)
[2018-01-22 08:00] VITALS: BP 105/58
[2018-01-22 09:00] VITALS: BP 102/66
[2018-01-22] MEDS: LEVOFLOXACIN 500MG 100 ML IV SCH (09:54)
[2018-01-22] MEDS: PANTOPRAZOLE 40 MG/10 ML VIAL IV SCH (09:54)
[2018-01-22] MEDS ORDERED: MIDAZOLAM HCL 1MG/1ML-2 ML VIAL ONE (11:40)
[2018-01-22 16:36] VITALS: BP 114/69
[2018-01-22 20:00] VITALS: BP 95/64
[2018-01-22] MEDS: PANTOPRAZOLE 40 MG TAB PO SCH (21:37)
[2018-01-22] MEDS: ATORVASTATIN 20 MG TAB PO SCH (21:37)
[2018-01-22] MEDS: TEMAZEPAM 15 MG CAP PO PRN (21:38)
[2018-01-22 22:00] VITALS: BP 95/64
[2018-01-22] MEDS: ALBUTEROL SULF 2.5 MG/0.5ML(0.5%) NEB SOLN NEB SCH (22:39)
[2018-01-23 02:03] VITALS: BP 93/64
[2018-01-23] MEDS: ALBUTEROL SULF 2.5 MG/0.5ML(0.5%) NEB SOLN NEB SCH ×5 (02:45→18:42)
[2018-01-23] MEDS: ACCU-CHEK COMFORT CURVE STRIP VI SCH ×4 (06:12→18:45)
[2018-01-23 06:45] LABS: Basophils # (auto) 0 uL; Basophils % (auto) 0.2 % (0.0-2.0); Eosinophils # (auto) 0 uL; Eosinophils % (auto) 0.5 % (0.0-7.0); Hematocrit 31.9 % (41.0-53.0); Hemoglobin 10.6 g/dL (13.5-17.5); Lymphocytes # (auto) 0.7 uL; Lymphocytes % (auto) 9.9 % (10.0-50.0); Mean Corpuscular Hemoglobin 29.5 pg (28.0-32.0); Mean Corpuscular Hgb Conc. 33.1 g/dL (32.0-36.0); Mean Corpuscular Volume 88.9 fL (80.0-100.0); Monocytes # (auto) 0.4 uL; Monocytes % (auto) 5.2 % (0.0-12.0); Neutrophils # (auto) 6.3 uL; Neutrophils % (auto) 84.2 % (37.0-80.0); Platelet Count (auto) 155 10^3/uL (140-450); Red Blood Cells 3.59 10^6/uL (4.5-5.90); White Blood Cell 7.5 10^3/uL (4.4-10.8)
[2018-01-23 06:58] LABS: Red Cell Distribution Width 21.9 % (11.8-14.3)
[2018-01-23 08:37] VITALS: BP 107/63
[2018-01-23] MEDS: PANTOPRAZOLE 40 MG TAB PO SCH (09:22)
[2018-01-23] MEDS ORDERED: SUCR1TAB38 PO (14:52)
[2018-01-23] MEDS ORDERED: LISI2.5T47 PO (14:52)
[2018-01-23] MEDS ORDERED: OMEP20CA74 PO (14:52)
[2018-01-23] MEDS ORDERED: FERR-7 PO (15:01)
[2018-01-23 16:03] VITALS: BP 105/58
[2018-01-23 17:19] VITALS: BP 91/60
== END 2018-01-23 19:47 | disposition home health service (06) | DRG 377 ==
LOC: ER 09:26 → EDUNIT# 09:26 → OVERFLOW 09:27 → TELE-CENTR 01-21 14:18
PROVIDERS: ADMIT Internal Medicine; ATTEND Hospitalist
PROC: 30233N1 Transfusion of Nonautologous Red Blood Cells into Peripheral Vein, Percutaneous Approach (ICD-10-PCS; 2018-01-19)
PROC: 0DJ08ZZ Inspection of Upper Intestinal Tract, Via Natural or Artificial Opening Endoscopic (ICD-10-PCS; principal; 2018-01-22 11:36)
DX: K29.71 Gastritis, unspecified, with bleeding (principal); N17.0 Acute kidney failure with tubular necrosis; E87.2 Acidosis; E87.0 Hyperosmolality and hypernatremia; E83.51 Hypocalcemia; D62 Acute posthemorrhagic anemia; I42.9 Cardiomyopathy, unspecified; K29.81 Duodenitis with bleeding; K26.4 Chronic or unspecified duodenal ulcer with hemorrhage; I50.9 Heart failure, unspecified; I11.0 Hypertensive heart disease with heart failure; E87.6 Hypokalemia; E78.5 Hyperlipidemia, unspecified; K59.00 Constipation, unspecified; F41.9 Anxiety disorder, unspecified; I35.0 Nonrheumatic aortic (valve) stenosis; K20.9 Esophagitis, unspecified; N28.9 Disorder of kidney and ureter, unspecified; Z66 Do not resuscitate; R74.8 Abnormal levels of other serum enzymes; G47.00 Insomnia, unspecified; I25.10 Atherosclerotic heart disease of native coronary artery without angina pectoris; I25.2 Old myocardial infarction; Z79.02 Long term (current) use of antithrombotics/antiplatelets; Z86.74 Personal history of sudden cardiac arrest; Z95.5 Presence of coronary angioplasty implant and graft; Z86.711 Personal history of pulmonary embolism; Z79.899 Other long term (current) drug therapy; Z79.82 Long term (current) use of aspirin
CPT/HCPCS: 36415; 36430; 36600; 43235; 71045; 74176; 80048; 80053; 81001; 82150; 82270; 82805; 82962; 83036; 83605; 83690; 83735; 84100; 84443; 84484; 85014; 85018; 85025; 85045; 85610; 86850; 86900; 86901; 86920; 87040; 87493; 93005; 94640; 94761; 96374; 96375; 97163; C9113; G0378; J0610; J1956; J2250; J3480; J3490

== ENCOUNTER 2018-02-26 07:44 | Inpatient (IN) | payer OTHER ==
[~2018-02-26] VITALS: Ht 180.3 cm; Wt 51.2 kg
[~2018-02-26 07:44] MED LIST changes: -ASPI81CH43 PO; +FERR-7 PO; +LISI2.5T47 PO; +OMEP20CA74 PO; +SUCR1TAB38 PO
[2018-02-26] MEDS ORDERED: ONDANSETRON HCL 4 MG/2 ML VIAL ONE (07:52)
[2018-02-26] MEDS ORDERED: SODIUM CHLORIDE 0.9% 1,000 ML IV ONE (08:08)
[2018-02-26] MEDS ORDERED: ONDANSETRON HCL 4 MG/2 ML VIAL IV ONE (08:15)
[2018-02-26] MEDS ORDERED: PANTOPRAZOLE 40 MG/10 ML VIAL IV ONE (08:15)
[2018-02-26 08:31] LABS: Basophils # (auto) 0 uL; Basophils % (auto) 0.6 % (0.0-2.0); Eosinophils # (auto) 0.1 uL; Eosinophils % (auto) 1.2 % (0.0-7.0); Hemoglobin 10.3 g/dL (13.5-17.5); Lymphocytes % (auto) 24.6 % (10.0-50.0); Mean Corpuscular Hemoglobin 29.3 pg (28.0-32.0); Mean Corpuscular Hgb Conc. 31.3 g/dL (32.0-36.0); Mean Corpuscular Volume 93.6 fL (80.0-100.0); Monocytes # (auto) 0.3 uL; Monocytes % (auto) 3.6 % (0.0-12.0); Neutrophils # (auto) 5.6 uL; Nucleated Red Blood Cells % 0.1 %; Platelet Count (auto) 259 10^3/uL (140-450); Red Blood Cells 3.52 10^6/uL (4.5-5.90); Red Cell Distribution Width 22.8 % (11.8-14.3)
[2018-02-26 08:53] LABS: Albumin 2.2 g/dL (3.4-5.0); BUN/Creatinine Ratio 12.6; Bilirubin, Total 0.5 mg/dL (0.2-1.0); Calcium 8.3 mg/dL (8.5-10.1); Magnesium 2.4 mg/dL (1.6-2.6); Potassium 3.9 mmol/L (3.5-5.1); Total Protein 6.7 g/dL (6.4-8.2)
[2018-02-26] MEDS ORDERED: cefTRIAXone 1GM/10ml IVPUSH 10 ML IV ONE (10:00)
[2018-02-26 10:17] LABS: INR 0.94 (0.9-1.15); Partial Thromboplastin Time 27.2 sec (22.64-33.71); Prothrombin Time 10.2 sec (9.37-12.3)
[2018-02-26] MEDS ORDERED: MORPHINE SULFATE 4 MG/ML SYR/VIAL IV PRN ×2 (10:30)
[2018-02-26] MEDS ORDERED: ALBUTEROL SULF 2.5 MG/0.5ML(0.5%) NEB SOLN NEB PRN (10:30)
[2018-02-26] MEDS ORDERED: IPRATROPIUM BROM 0.5 MG/2.5ML INH SOL NEB PRN (10:30)
[2018-02-26] MEDS ORDERED: CLOPIDOGREL BISULFATE 75 MG TAB PO ONE (10:30)
[2018-02-26] MEDS ORDERED: ASPirin-EC 81 mg tab PO ONE (10:30)
[2018-02-26] MEDS ORDERED: traMADol HCL 50 MG TAB PO PRN (10:30)
[2018-02-26] MEDS ORDERED: ALBUMIN 25% 100 ML IV ONE (10:30)
[2018-02-26] MEDS ORDERED: NITROGLYCERIN 0.4 MG SL TAB SL PRN (10:30)
[2018-02-26] MEDS ORDERED: ONDANSETRON HCL 4 MG/2 ML VIAL IV PRN (10:30)
[2018-02-26] MEDS ORDERED: DOCUSATE SOD 100 MG CAP PO ONE (11:15)
[2018-02-26 14:41] VITALS: BP 110/77
[2018-02-26] MEDS ORDERED: FUROSEMIDE 40 MG TAB PO ONE (15:00)
[2018-02-26] MEDS ORDERED: POTASSIUM CHL 20 Meq TABLET PO ONE (15:00)
[2018-02-26] MEDS ORDERED: OMEP20TA PO (19:20)
[2018-02-26] MEDS ORDERED: MAGN64TA3 PO (19:20)
[2018-02-26] MEDS ORDERED: FERR-20 PO (19:20)
[2018-02-26] MEDS ORDERED: SODIENE35 RE (19:20)
[2018-02-26] MEDS ORDERED: MOMLQ PO (19:20)
[2018-02-26] MEDS ORDERED: BIS10RS PR (19:20)
[2018-02-26] MEDS ORDERED: SUCR1TAB PO (19:20)
[2018-02-26] MEDS ORDERED: ASPI81TA27 PO (19:20)
[2018-02-26 19:53] LABS: Basophils # (auto) 0 uL; Basophils % (auto) 0.2 % (0.0-2.0); Eosinophils # (auto) 0 uL; Eosinophils % (auto) 0.1 % (0.0-7.0); Hematocrit 34.9 % (41.0-53.0); Hemoglobin 10.9 g/dL (13.5-17.5); Lymphocytes # (auto) 0.7 uL; Lymphocytes % (auto) 8.1 % (10.0-50.0); Mean Corpuscular Hemoglobin 29.4 pg (28.0-32.0); Mean Corpuscular Hgb Conc. 31.2 g/dL (32.0-36.0); Mean Corpuscular Volume 94.1 fL (80.0-100.0); Monocytes # (auto) 0.5 uL; Monocytes % (auto) 5.8 % (0.0-12.0); Neutrophils # (auto) 7.2 uL; Neutrophils % (auto) 85.8 % (37.0-80.0); Nucleated Red Blood Cells % 0.1 %; Platelet Count (auto) 239 10^3/uL (140-450); White Blood Cell 8.4 10^3/uL (4.4-10.8)
[2018-02-26 19:55] LABS: Red Cell Distribution Width 22.3 % (11.8-14.3)
[2018-02-26 21:53] VITALS: BP 111/72
[2018-02-26] MEDS: PANTOPRAZOLE 40 MG/10 ML VIAL IV SCH (22:00)
[2018-02-26] MEDS ORDERED: MORPHINE SULFATE 4 MG/ML SYR/VIAL IV ONE (23:30)
[2018-02-26] MEDS: TEMAZEPAM 15 MG CAP PO PRN (23:58)
[2018-02-26] MEDS: DOCUSATE SOD 100 MG CAP PO SCH (23:58)
[2018-02-27 05:33] VITALS: BP 101/59
[2018-02-27 06:56] LABS: Basophils # (auto) 0 uL; Basophils % (auto) 0.7 % (0.0-2.0); Eosinophils # (auto) 0 uL; Eosinophils % (auto) 0.1 % (0.0-7.0); Hematocrit 32.5 % (41.0-53.0); Hemoglobin 10.5 g/dL (13.5-17.5); Lymphocytes % (auto) 13.8 % (10.0-50.0); Mean Corpuscular Hemoglobin 29.3 pg (28.0-32.0); Mean Corpuscular Hgb Conc. 32.3 g/dL (32.0-36.0); Mean Corpuscular Volume 90.5 fL (80.0-100.0); Monocytes # (auto) 0.5 uL; Monocytes % (auto) 6.6 % (0.0-12.0); Neutrophils # (auto) 5.6 uL; Neutrophils % (auto) 78.8 % (37.0-80.0); Nucleated Red Blood Cells % 0.1 %; Platelet Count (auto) 206 10^3/uL (140-450); Red Cell Distribution Width 21.7 % (11.8-14.3); White Blood Cell 7.1 10^3/uL (4.4-10.8)
[2018-02-27 07:25] LABS: Albumin 2.1 g/dL (3.4-5.0); BUN/Creatinine Ratio 21.3; Bilirubin, Total 0.7 mg/dL (0.2-1.0); Calcium 8.7 mg/dL (8.5-10.1); Potassium 5.1 mmol/L (3.5-5.1); Total Protein 6.5 g/dL (6.4-8.2)
[2018-02-27 08:15] VITALS: BP 104/66
[2018-02-27 08:39] VITALS: BP 108/79
[2018-02-27] MEDS: PANTOPRAZOLE 40 MG/10 ML VIAL IV SCH ×2 (09:09→23:51)
[2018-02-27] MEDS: CLOPIDOGREL BISULFATE 75 MG TAB PO SCH (09:10)
[2018-02-27] MEDS: FUROSEMIDE 40 MG TAB PO SCH (09:10)
[2018-02-27] MEDS: DOCUSATE SOD 100 MG CAP PO SCH ×2 (09:11→23:52)
[2018-02-27] MEDS ORDERED: POTASSIUM CHL 20 Meq TABLET PO SCH (10:00)
[2018-02-27] MEDS ORDERED: ASPirin-EC 81 mg tab PO SCH (10:00)
[2018-02-27 13:00] VITALS: BP 91/63
[2018-02-27 16:13] VITALS: BP 94/53
[2018-02-27 22:00] VITALS: BP 86/51
[2018-02-27] MEDS: TEMAZEPAM 15 MG CAP PO PRN (23:52)
[2018-02-28 05:34] VITALS: BP 87/56
[2018-02-28 06:50] LABS: Basophils # (auto) 0 uL; Basophils % (auto) 0.6 % (0.0-2.0); Eosinophils # (auto) 0.2 uL; Eosinophils % (auto) 3.8 % (0.0-7.0); Hemoglobin 9.9 g/dL (13.5-17.5); Lymphocytes # (auto) 1.1 uL; Lymphocytes % (auto) 19.4 % (10.0-50.0); Mean Corpuscular Hemoglobin 29.6 pg (28.0-32.0); Mean Corpuscular Hgb Conc. 30.9 g/dL (32.0-36.0); Mean Corpuscular Volume 95.9 fL (80.0-100.0); Monocytes # (auto) 0.5 uL; Monocytes % (auto) 8.3 % (0.0-12.0); Neutrophils # (auto) 3.8 uL; Neutrophils % (auto) 67.9 % (37.0-80.0); Nucleated Red Blood Cells % 0.1 %; Platelet Count (auto) 197 10^3/uL (140-450); Red Blood Cells 3.33 10^6/uL (4.5-5.90); White Blood Cell 5.6 10^3/uL (4.4-10.8)
[2018-02-28 06:53] LABS: Red Cell Distribution Width 22.7 % (11.8-14.3)
[2018-02-28 06:57] LABS: BUN/Creatinine Ratio 23.2; Calcium 8.6 mg/dL (8.5-10.1); Magnesium 2.2 mg/dL (1.6-2.6); Potassium 4.3 mmol/L (3.5-5.1)
[2018-02-28 08:00] VITALS: BP 94/59
[2018-02-28 09:00] VITALS: BP 94/59
[2018-02-28] MEDS: DOCUSATE SOD 100 MG CAP PO SCH (12:19)
[2018-02-28] MEDS: PANTOPRAZOLE 40 MG/10 ML VIAL IV SCH (12:19)
[2018-02-28] MEDS: CLOPIDOGREL BISULFATE 75 MG TAB PO SCH (12:21)
[2018-02-28] MEDS: FUROSEMIDE 40 MG TAB PO SCH (12:21)
[2018-02-28 12:53] LABS: Urine Bacteria FEW /hpf (None Seen); Urine Blood 2+ /uL (Negative); Urine Mucus FEW (None Seen); Urine Specific Gravity 1.025 (1.001-1.035); Urine WBC 33 /hpf (0 - 3)
[2018-02-28 13:00] VITALS: BP 137/77
[2018-02-28 13:20] VITALS: BP 99/61
== END 2018-02-28 15:00 | disposition hospice, home (50) | DRG 280 ==
LOC: EDBD 07:44 → ER 07:44 → TELE 07:45 → TELE-WESTW 18:10
PROVIDERS: ADMIT Internal Medicine; ATTEND Internal Medicine
PROC: 0W993ZZ Drainage of Right Pleural Cavity, Percutaneous Approach (ICD-10-PCS; principal; 2018-02-26)
DX: I21.4 Non-ST elevation (NSTEMI) myocardial infarction (principal); I50.23 Acute on chronic systolic (congestive) heart failure; R57.0 Cardiogenic shock; E43 Unspecified severe protein-calorie malnutrition; E87.2 Acidosis; I13.0 Hypertensive heart and chronic kidney disease with heart failure and stage 1 through stage 4 chronic kidney disease, or unspecified chronic kidney disease; J98.11 Atelectasis; J90 Pleural effusion, not elsewhere classified; Z68.1 Body mass index [BMI] 19.9 or less, adult; Z51.5 Encounter for palliative care; Z66 Do not resuscitate; E78.5 Hyperlipidemia, unspecified; F03.90 Unspecified dementia, unspecified severity, without behavioral disturbance, psychotic disturbance, mood disturbance, and anxiety; I25.10 Atherosclerotic heart disease of native coronary artery without angina pectoris; I25.5 Ischemic cardiomyopathy; I25.2 Old myocardial infarction; K21.0 Gastro-esophageal reflux disease with esophagitis; K59.00 Constipation, unspecified; M77.9 Enthesopathy, unspecified; M85.80 Other specified disorders of bone density and structure, unspecified site; N18.9 Chronic kidney disease, unspecified; Z79.82 Long term (current) use of aspirin; Z86.74 Personal history of sudden cardiac arrest; Z87.11 Personal history of peptic ulcer disease; Z95.5 Presence of coronary angioplasty implant and graft; Z79.899 Other long term (current) drug therapy
CPT/HCPCS: 10022; 32555; 36415; 70450; 71045; 74176; 76604; 76942; 80048; 80053; 80061; 81001; 83036; 83605; 83735; 83880; 84484; 85025; 85610; 85730; 86850; 86900; 86901; 87040; 87081; 93005; 96361; 96374; 96375; 99291; A4223; C9113; J2405; P9047

== ENCOUNTER → 2018-05-03 | Emergency (ER) | payer OTHER ==
[~2018-05-03] VITALS: Ht 185.4 cm; Wt 68.0 kg
[~2018-05-03] MED LIST changes: +ASPI81TA27 PO; -ATOR20TA50 PO; +BIS10RS PR; -CAR3125T PO; -CLOP75TA28 PO; +FERR-20 PO; -FERR-7 PO; -FURO20TA PO; +HYDROcodone-ACET 10/325MG TAB PO ONE; -LISI2.5T47 PO; +MAGN64TA3 PO; +MOMLQ PO; -OMEP20CA74 PO; +OMEP20TA PO; +SUCR1TAB PO; -SUCR1TAB38 PO
[2018-05-03 11:07] VITALS: BP 99/54
== END | disposition home or self-care (01) ==
LOC: EDUNIT# 09:57 → EDBD 10:10 → ER 10:10
DX: S01.01XA Laceration without foreign body of scalp, initial encounter (principal); I25.10 Atherosclerotic heart disease of native coronary artery without angina pectoris; I50.9 Heart failure, unspecified; E78.5 Hyperlipidemia, unspecified; I11.0 Hypertensive heart disease with heart failure; I25.2 Old myocardial infarction; Z79.899 Other long term (current) drug therapy; W01.0XXA Fall on same level from slipping, tripping and stumbling without subsequent striking against object, initial encounter; Y93.89 Activity, other specified; Y92.89 Other specified places as the place of occurrence of the external cause; Y99.8 Other external cause status
CPT/HCPCS: 12002; 70450